=== PATIENT | male | born 1960 | race Caucasian/White ===

== ENCOUNTER 2017-07-17 15:36 | Emergency (ER) | payer MEDICARE, OTHER ==
[2017-07-17] MEDS: IBUPROFEN 600 MG TAB PO (18:08)
== END 2017-07-17 20:01 | disposition home or self-care (01) ==
LOC: FTE 15:36
DX: J06.9 Acute upper respiratory infection, unspecified (principal)
CPT/HCPCS: 71045; 87400; 93005; 99285-25